=== PATIENT | female | born 1975 ===

== ENCOUNTER 2023-03-14 15:19 | Outpatient (CLI) | payer OTHER | END 2023-03-14 15:25 | disposition home or self-care (01) | LOC: RAD 15:19 | PROVIDERS: ATTEND Physical Medicine & Rehabilitation | DX: M25.552 Pain in left hip (principal) ==

== ENCOUNTER 2024-12-21 14:31 | Outpatient (CLI) | payer OTHER | END 2024-12-21 14:57 | disposition home or self-care (01) | LOC: MAMO-SONO 14:31 | PROVIDERS: ATTEND Obstetrics & Gynecology Gynecology | DX: N64.4 Mastodynia (principal); Z12.31 Encounter for screening mammogram for malignant neoplasm of breast ==